=== PATIENT | male | born 1975 | race African-American/Black ===

== ENCOUNTER 2017-11-02 07:28 | Emergency (ER) | payer OTHER, MEDICAID | END 2017-11-02 10:27 | disposition home or self-care (01) | LOC: FTE 07:28 | DX: S40.862A Insect bite (nonvenomous) of left upper arm, initial encounter (principal); W57.XXXA Bitten or stung by nonvenomous insect and other nonvenomous arthropods, initial encounter; Y92.9 Unspecified place or not applicable | CPT/HCPCS: 99283; Z7502 ==